=== PATIENT | female | born 1970 | race Caucasian/White ===

== ENCOUNTER → 2019-03-29 | Outpatient (CLI) | payer BC ==
--- NOTE | 2019-03-29 13:16 | RAD ---
CT CHEST WO CONTRAST Indication: Pulmonary nodule Technique: Noncontrast CT imaging was performed of the chest, multiplanar reconstruction images submitted. One or more of the following individualized dose reduction techniques were utilized for this examination: 1. Automated exposure control 2. Adjustment of the mA and/or kV according to patient size 3. Use of iterative reconstruction technique. Comparison: February 07, 2017 Findings: Small noncalcified superior right lower lobe pulmonary nodule image 37 series 2 about 0.3 cm is unchanged. No new pulmonary nodularity is identified. There is unchanged tiny 0.1 to 0.2 cm subpleural right upper lobe nodule image 23 series 2. There is no new infiltrate, pleural or pericardial effusion, pneumothorax, significant chest lymphadenopathy. There is some coronary calcification now apparent. Thoracic aortic caliber is within normal limits. There has been cholecystectomy. Mild fullness of the left adrenal gland is stable. As best seen image 32 series 2, there is a somewhat irregular noncalcified 1.4 cm nodule of the more medial right breast superior to the nipple, not seen on previous exam. There is also somewhat nodular density posterior to the left nipple about 1.6 cm in the approximate 1:00 region, this area not included on previous exam. IMPRESSION: 1. There is a nodule of the medial right breast above the level of nipple not seen previously for which mammography and ultrasound recommended. There is also nodule of the left breast, this area not included previously also which evaluation on mammography and ultrasound recommended. Findings were discussed with nurse Berry in the office of the Ariel Arguello 1:11 PM on 03/29/2019 2. There is stable small superior right lower lobe pulmonary nodule, also stable tiny state subpleural right upper lobe nodule. No new pulmonary nodularity is identified. 3. There is some coronary calcification. Electronically signed by: Bethel Sexton MD (03/29/2019 1:13 PM) [id number]
== END | disposition home or self-care (01) ==
LOC: CT 09:13
PROVIDERS: ATTEND Physician Assistant
DX: R91.1 Solitary pulmonary nodule (principal); I25.10 Atherosclerotic heart disease of native coronary artery without angina pectoris; N63.20 Unspecified lump in the left breast, unspecified quadrant; N63.10 Unspecified lump in the right breast, unspecified quadrant; Z90.49 Acquired absence of other specified parts of digestive tract
CPT/HCPCS: 71250

== ENCOUNTER → 2019-09-30 | Outpatient (CLI) | payer BC ==
[~2019-09-30] MED LIST: IOHEXOL 240 MG/ML 50ML VIAL. ONE
[2019-09-30 09:22] LABS: CREATININE 0.8 mg/dL (0.6-1.0); GFR 75.9; POTASSIUM 3.8 mmol/L (3.5-5.1)
[2019-09-30 09:25] LABS: BASO % 1 % (0-3); EOS # 0.6 x10^3/uL (0.0-0.7); EOS % 25 % (0-3); LYMPH # 0.6 x10^3/uL (1.0-4.8); LYMPH % 24 % (24-48); MEAN CORPUSCULAR HEMOGLOBIN 31 pg (25-35); MEAN CORPUSCULAR HGB CONC 34 g/dL (31-37); MEAN CORPUSCULAR VOLUME 92 fL (79-100); MONO # 0.4 x10^3/uL (0.0-1.1); MONO % 18 % (0-9); NEUT # 0.8 x10^3uL (1.8-7.7); NEUT % 32 % (31-73); PLATELET COUNT 176 x10^3/uL (140-400); RED BLOOD COUNT 4.13 x10^6/uL (3.50-5.40); RED CELL DISTRIBUTION WIDTH 13.1 % (11.5-14.5); WHITE BLOOD COUNT 2.5 x10^3/uL (4.0-11.0)
[2019-09-30 09:28] LABS: ALBUMIN/GLOBULIN RATIO 1.2 (1.0-1.7); TOTAL BILIRUBIN 0.3 mg/dL (0.2-1.0); TOTAL PROTEIN 7.4 g/dL (6.4-8.2)
[2019-09-30] MEDS: IOHEXOL 300 MG/ML 75 ML VIAL. IV ONE (09:56)
--- NOTE | 2019-09-30 10:22 | RAD ---
Examination: CT ABD PELV W/ORAL IV CONTRAST History: Epigastric pain. Low-grade fever. Comparison/Correlation: 01/24/2015 CT abdomen and pelvis with oral contrast Findings: Axial images of the abdomen and pelvis were obtained following IV and oral contrast. Visualized lung bases are unremarkable and minimal linear scarring or atelectasis involving the lingula. Small hiatal hernia is present. Liver, spleen, pancreas, and right adrenal gland are normal. Left adrenal gland nodule probably representing a benign adenoma is stable. Cholecystectomy noted. Kidneys are unremarkable. Circumferential wall thickening the distal duodenum and contiguous. The proximal jejunum is evident. This probably represents contractures present. No surrounding stranding, fluid collection, or extraluminal gas. Appendix is normal. Diverticulosis of the colon is present. Uterus is unremarkable. No ascites or focal fluid. Transitional L5 vertebra is present. Left L4 pars interarticularis fracture. No malalignment. Impression: Hiatal hernia. Circumferential wall thickening of the junction of the distal duodenum and proximal jejunum. This probably represents contraction or spasm. No surrounding inflammatory findings. Left L4 pars interarticularis fracture is again seen. PQRS Compliance Statement: One or more of the following individualized dose reduction techniques were utilized for this examination: 1. Automated exposure control 2. Adjustment of the mA and/or kV according to patient size 3. Use of iterative reconstruction technique Electronically signed by: Kobi Kuhn MD (09/30/2019 10:19 AM) [id number]
[2019-09-30 10:35] LABS: SEDIMENTATION RATE 34 (0-25)
[2019-09-30 11:32] LABS: % ATYL 5 % (0-0); % BANDS 4 % (0-9); % BASOS 1 % (0-3); % EOS 27 % (0-5); % LYMPHS 27 % (24-48); % MONOS 12 % (0-10); % SEGS 24 % (35-66); PLT ESTIMATE ADEQUATE (ADEQUATE)
== END ==
LOC: CT 08:50
PROVIDERS: ATTEND Physician Assistant
DX: K44.9 Diaphragmatic hernia without obstruction or gangrene (principal); R50.9 Fever, unspecified; R11.0 Nausea; R51 Headache; L50.9 Urticaria, unspecified; K57.30 Diverticulosis of large intestine without perforation or abscess without bleeding; Z90.49 Acquired absence of other specified parts of digestive tract
CPT/HCPCS: 36415; 74177; 80053; 82150; 83690; 85007; 85025; 85651; Q9967

== ENCOUNTER → 2020-08-29 | Outpatient (CLI) | payer BC ==
--- NOTE | 2020-08-29 13:23 | RAD ---
XR KNEE_RT 1-2 VIEWS DATE: 08/29/2020 9:20 AM INDICATION: RIGHT KNEE PAIN / Spl. Instructions: / History: COMPARISON: None. FINDINGS: Bones: There is no evidence of acute fracture or dislocation. Joints: Mild medial compartment joint space narrowing. There is no joint effusion. Miscellaneous: None. IMPRESSION: No acute osseous abnormality. Mild medial compartment degenerative joint space narrowing. Electronically signed by: Bethel Reddy MD (08/29/2020 1:20 PM) [id number]
== END ==
LOC: PMG 09:08
PROVIDERS: ATTEND Physician Assistant
DX: M23.8X1 Other internal derangements of right knee (principal)
CPT/HCPCS: 73560

== ENCOUNTER → 2021-04-18 | Outpatient (CLI) | payer BC ==
--- NOTE | 2021-04-19 04:51 | RAD ---
Abdominal radiograph 04/18/2021 4:36 PM Indication: Left upper quadrant abdominal pain and bloating Comparison: None. Technique: Frontal supine radiographs of the abdomen were obtained. Findings: There is no free intraperitoneal air. There is no portal venous gas. No pneumatosis coli. Cholecystec maria [place] rosario changes in the right upper quadrant. There are no dilated loops of small or large bowel. There are no differential air-fluid levels. There is no organomegaly. No suspicious calcifications are identified along the expected course of the genitourinary tract. No suspicious osseous abnormality is identified. IMPRESSION Nonobstructed bowel gas pattern. Electronically signed by: Deepa Persaud MD (04/19/2021 4:49 AM) [facility]
== END ==
LOC: DXRAD 16:32
PROVIDERS: ATTEND Physician Assistant
DX: R14.0 Abdominal distension (gaseous) (principal); R10.12 Left upper quadrant pain
CPT/HCPCS: 74019

== ENCOUNTER → 2021-05-02 | Outpatient (CLI) | payer BC ==
--- NOTE | 2021-05-02 10:06 | RAD ---
EXAM: Right tibia and fibula, 2 views; right ankle, 3 views. HISTORY: Gloria pain. COMPARISON: None. FINDINGS: 2 views of the tibia and fibula and 3 views of the ankle are obtained. There is no fracture , dislocation or subluxation. There is no lytic or sclerotic osseous lesion. There is no periosteal r eaction. The ankle mortise is intact. There is no osteochondral lesion. There is a small corticated o ssicle inferior to the medial malleolus, likely due to chronic nonunited fracture fragment. IMPRESSION: No acute osseous finding. Electronically signed by: Kylie Hazel MD (05/02/2021 10:03 AM) [id number]
== END ==
LOC: RAD 09:40
PROVIDERS: ATTEND Nurse Practitioner Family
DX: M25.571 Pain in right ankle and joints of right foot (principal); M79.604 Pain in right leg
CPT/HCPCS: 73590; 73610

== ENCOUNTER 2021-11-11 16:57 | Emergency (ER) | payer BC ==
[~2021-11-11] VITALS: Ht 160 cm; Wt 111.3 kg
[2021-11-11] MEDS ORDERED: IV NORMAL SALINE 1,000ML 1,000 ML IV ONE (19:15)
[2021-11-11] MEDS ORDERED: ONDANSETRON PF 4 MG/2 ML VIAL. IVP ONE (19:15)
--- NOTE | 2021-11-11 19:16 | PHYS DOC ---
General Adult EDM: Chief Complaint: NAUSEA/VOMITING/DIARRHEA HPI: HPI: Patient is a 51-year-old female who presents to the emergency department for nausea, vomiting, diarrhea, fevers, bloating, shortness of breath and umbilical abdominal cramping that started on . She reports a temperature at home of 102. She reports a positive sick exposure as her 9-year-old grandson had similar symptoms. She denies any dysuria, blood in her stools or vomit, cough. Review of Systems: Review of Systems: Constitutional: See HPI Respiratory: See HPI GI: See HPI : See HPI Musculoskeletal: Denies flank pain Allergies: Allergies: Allergies Coded Allergies Type Severity Reaction Last Updated Verified No Known Drug Allergies 01/24/15 No Physical Exam: PE: Constitutional: Well developed, well nourished, no acute distress, non-toxic appearance. [] HENT: Normocephalic, atraumatic, bilateral external ears normal, oropharynx moist, no oral exudates, nose normal. [] Eyes: PERRL, EOMI, conjunctiva normal, no discharge. [] Neck: Normal range of motion, no tenderness, supple, no stridor. [] Cardiovascular:Heart rate regular rhythm, no murmur [] Lungs & Thorax: Bilateral breath sounds clear to auscultation [] Abdomen: Bowel sounds normal, soft, epigastric, periumbilical, left upper quadrant and bilateral lower abdominal tenderness with palpation, no abdominal guarding or rigidity, no rebound tenderness, no masses, no pulsatile masses. [] Skin: Warm, dry, no erythema, no rash. [] Back: No tenderness, no CVA tenderness. [] Extremities: No tenderness, no cyanosis, no clubbing, ROM intact, no edema. [] Neurologic: Alert and oriented X 3, normal motor function, normal sensory function, no focal deficits noted. [] Psychologic: Affect normal, judgement normal, mood normal. [] Current Patient Data: Labs: Laboratory Tests Test 11/11/21 19:00 11/11/21 19:40 11/11/21 20:30 Urine Collection Type Clean catch Urine Color Yellow Urine Clarity Hazy Urine pH 6.5 Urine Specific [place] >=1.030 Urine Protein 100 mg/dl Urine Glucose (UA) Neg mg/dL Urine Ketones (Stick) Trace mg/dL Urine Blood Trace Urine Nitrite Neg Urine Bilirubin Small Urine Urobilinogen Dipstick 0.2 mg/dL Urine Leukocyte Esterase Neg Urine RBC 3-5 /HPF Urine WBC 1-4 /HPF Urine Squamous Epithelial Cells Many /LPF Urine Bacteria Mod /HPF White Blood Count 4.7 x10^3/uL Red Blood Count 4.87 x10^6/uL Hemoglobin 15.5 g/dL Hematocrit 44.1 % Mean Corpuscular Volume 91 fL Mean Corpuscular Hemoglobin 32 pg Mean Corpuscular Hemoglobin Concent 35 g/dL Red Cell Distribution Width 13.1 % Platelet Count 266 x10^3/uL Neutrophils (%) (Auto) 55 % Lymphocytes (%) (Auto) 24 % Monocytes (%) (Auto) 20 % Eosinophils (%) (Auto) 0 % Basophils (%) (Auto) 1 % Neutrophils # (Auto) 2.6 x10^3uL Lymphocytes # (Auto) 1.1 x10^3/uL Monocytes # (Auto) 0.9 x10^3/uL Eosinophils # (Auto) 0.0 x10^3/uL Basophils # (Auto) 0.0 x10^3/uL Sodium Level 134 mmol/L Potassium Level 2.9 mmol/L Chloride Level 97 mmol/L Carbon Dioxide Level 22 mmol/L Anion Gap 15 Blood Urea Nitrogen 30 mg/dL Creatinine 1.3 mg/dL Estimated GFR (Cockcroft-Gault) 43.0 BUN/Creatinine Ratio 23 Glucose Level 102 mg/dL Calcium Level 9.7 mg/dL Total Bilirubin 0.5 mg/dL Aspartate Amino Transf (AST/SGOT) 56 U/L Alanine Aminotransferase (ALT/SGPT) 131 U/L Alkaline Phosphatase 82 U/L Total Protein 8.6 g/dL Albumin 4.4 g/dL Albumin/Globulin Ratio 1.0 Lipase 93 U/L Influenza Type A (Rapid) Negative Influenza Type B (Rapid) Negative SARS-CoV-2 Antigen (Rapid) Negative Current Medications Medications (Trade) Dose Ordered Sig/Alice Route PRN Reason Start Time Stop Time Status Last Admin Dose Admin Sodium Chloride 1,000 ml @ 1,000 mls/hr 1X ONCE IV 11/11/21 19:15 11/11/21 20:14 DC 11/11/21 20:01 Ondansetron HCl (Zofran) 4 mg 1X ONCE IVP 11/11/21 19:15 5/29/22 19:20 DC 11/11/21 20:01 Fentanyl Citrate (Fentanyl 2ml Vial) 50 mcg 1X ONCE IVP 11/11/21 19:15 11/11/21 19:20 DC 11/11/21 20:02 Potassium Chloride (Klor-Con) 60 meq 1X ONCE PO 11/11/21 20:45 11/11/21 20:48 DC EKG: EKG: EKG performed by ER staff at 2109 shows sinus rhythm some T wave inversions in V2, no STEMI read by Dr. Zapata at 2116 [] Radiology/Procedures: Radiology/Procedures: []PROCEDURE: PORTABLE CHEST 1V XR CHEST 1V History: Reason: soa, fever / Spl. Instructions: / History: Comparison: None. Findings: No consolidation or pleural effusion. Normal heart size. No pneumothorax. Impression: 1. No acute cardiopulmonary process. Electronically signed by: Edison Enriquez DO (11/11/2021 8:12 PM) [facility] DICTATED AND SIGNED BY: EDISON ENRIQUEZ DO DATE: 11/11/212011 CC: EMERGENCY,DEPARTMENT; RHEA LARA; ABEL SEWELL SEWER DIGGER ~ PROCEDURE: CT ABDOMEN PELVIS WO CONTRAST PQRS Compliance Statement: One or more of the following individualized dose reduction techniques were utilized for this examination: 1. Automated exposure control 2. Adjustment of the mA and/or kV according to patient size 3. Use of iterative reconstruction technique CT ABDOMEN+PELVIS WO Clinical Indication: Reason: abdominal pain with n/v/d / Spl. Instructions: / History: Comparison: CT abdomen and pelvis of contrast September 30, 2019. Technique: Helical CT imaging of the abdomen and pelvis is performed without IV or oral contrast. Findings: Evaluation of solid organs and bowel is limited without oral and IV contrast, decreasing sensitivity for detection of abnormal findings. Lung bases are clear. Cardiac size is normal. Cholecystectomy. There is mild fatty infiltration of the liver. The spleen, pancreas, and right adrenal gland are normal. 1.2 cm left adrenal adenoma. The abdominal aorta is normal caliber. There is no perinephric stranding or hydronephrosis. The stomach is unremarkable. There are several subcentimeter mesenteric lymph nodes. There is no adenopathy. Tiny fat-containing umbilical hernia. There is no dilated small bowel. The appendix is normal. No colon wall thickening is seen. There is a diverticulum of the descending colon. Urinary bladder is decompressed limiting evaluation. There is an ovaries are unremarkable. There is no pelvic free fluid. There is left L5 spondylolysis. No acute bone abnormality. IMPRESSION: 1. No acute abdominal or pelvic abnormality. 2. Mild fatty infiltration of the liver. 3. Small left adrenal adenoma. Electronically signed by: Kendall Mchugh MD (11/11/2021 8:07 PM) [facility] DICTATED AND SIGNED BY: KENDALL MCHUGH MD DATE: 11/11/212000 CC: EMERGENCY,DEPARTMENT; RHEA LARA; ABEL SEWELL SEWER DIGGER ~ Heart Score: C/O Chest Pain: N/A Risk Factors: Risk Factors: DM, Current or recent (<one month) smoker, HTN, HLP, family history of CAD, obesity. Risk Scores: Score 0 - 3: 2.5% MACE over next 6 weeks - Discharge Home Score 4 - 6: 20.3% MACE over next 6 weeks - Admit for Clinical Observation Score 7 - 10: 72.7% MACE over next 6 weeks - Early Invasive Strategies Course & Med Decision Making: Course & Med Decision Making Pertinent Labs and Imaging studies reviewed. (See chart for details) [] Patient resents to the emergency department for nausea, vomiting, diarrhea, umbilical abdominal cramping, fevers and shortness of breath that started on . Work-up in the ER consisted of blood work including lipase, urinalysis, COVID and flu testing and CT imaging of abdomen and pelvis without IV contrast due to national shortage. Patient treated with IV fluids, Zofran and pain medication. CBC is unremarkable, patient's CMP showed a gap of 15, sodium 134, creatinine of 1.3, potassium 2.9 likely due to dehydration. Her potassium was replaced in the emergency department and patient is able to tolerate oral intake. AST was 56, ALT is 131 consistent with fatty liver as seen on patient's CT scan. Urinalysis shows moderate bacteria with white blood cells, patient be treated for UTI with antibiotic. She has not had any active vomiting while in the emergency department. Patient will be discharged home with nausea medication, she is advised to take Imodium [id number] for diarrhea. Patient likely has a viral illness. I discussed with patient all findings and diagnostic testing as well as the need to follow-up with PCP for further evaluation and treatment or return to the ER if any new or worsening symptoms. Strict return precautions were also discussed at length. Patient voiced understanding and agreement with the plan. Patient is hemodynamically stable at the time of disposition. Jesuson Disclaimer: Clarence Disclaimer: This electronic medical record was generated, in whole or in part, using a voice recognition dictation system. Departure Departure: Impression: Primary Impression: Viral syndrome Additional Impression: Urinary tract infection Qualified Codes: N30.01 - Acute cystitis with hematuria Disposition: HOME / SELF CARE / HOMELESS Condition: GOOD Referrals: RHEA LARA (PCP) Patient Instructions: Nausea and Vomiting, Urinary Tract Infection Additional Instructions: You are seen in the emergency department today for nausea, vomiting, diarrhea, fevers and abdominal pain. Please see attached CT imaging results to follow-up with your primary care provider regarding this. As we discussed, your blood work did show signs of dehydration. Make sure that you are increasing your fluid intake at home. You were noted to have low potassium which was replaced in the emergency department. Please make sure that you are eating potassium rich foods like bananas and green leafy vegetables. Your urinalysis did show a urinary tract infection which will be treated with an antibiotic. Please start and finish the antibiotic completely. Avoid bladder irritants like caffeine, sugary beverages and alcohol. Take Tylenol and ibuprofen at home for your pain or fevers. You are being discharged home with nausea medication that you can take as needed. You should take Imodium [id number] for diarrhea. Please follow-up with your primary care provider on Friday. Return to the emergency department if you develop worsening of your abdominal pain, intractable nausea or vomiting, high fevers refractory to treatment, blood in your stools or vomit. Scripts Cephalexin (KEFLEX) 500 Mg Capsule 1 CAP PO BID for UTI for 7 Days, #14 CAP 0 Refills Prov: ABEL SEWELL APRN 11/11/21 Ondansetron (ONDANSETRON ODT) 4 Mg Tab.rapdis 1 TAB PO PRN Q6-8HRS for NAUSEA for 7 Days, #28 TAB 0 Refills Prov: ABEL SEWELL APRN 11/11/21 ABEL SEWELL APRN November 11, 2021 19:16
[2021-11-11 19:58] LABS: BASO % 1 % (0-3); EOS % 0 % (0-3); HEMATOCRIT 44.1 % (36.0-47.0); HEMOGLOBIN 15.5 g/dL (12.0-15.5); LYMPH # 1.1 x10^3/uL (1.0-4.8); LYMPH % 24 % (24-48); MEAN CORPUSCULAR HEMOGLOBIN 32 pg (25-35); MEAN CORPUSCULAR HGB CONC 35 g/dL (31-37); MEAN CORPUSCULAR VOLUME 91 fL (79-100); MONO # 0.9 x10^3/uL (0.0-1.1); MONO % 20 % (0-9); NEUT # 2.6 x10^3uL (1.8-7.7); NEUT % 55 % (31-73); PLATELET COUNT 266 x10^3/uL (140-400); RED BLOOD COUNT 4.87 x10^6/uL (3.50-5.40); RED CELL DISTRIBUTION WIDTH 13.1 % (11.5-14.5); WHITE BLOOD COUNT 4.7 x10^3/uL (4.0-11.0)
[2021-11-11 20:09] LABS: BACTERIA,URINE MOD /HPF (0-FEW); CLARITY,URINE HAZY; COLOR,URINE YELLOW; GLUCOSE,URINE NEG (NEG); NITRITE,URINE NEG (NEG); SQUAMOUS EPITHELIAL CELL,UR MANY /LPF; UROBILINOGEN,URINE 0.2 mg/dL (0.2 mg/dL)
--- NOTE | 2021-11-11 20:09 | RAD ---
PQRS Compliance Statement: One or more of the following individualized dose reduction techniques were utilized for this examinat ion: 1. Automated exposure control 2. Adjustment of the mA and/or kV according to patient size 3. Use of iterative reconstruction technique CT ABDOMEN+PELVIS WO Clinical Indication: Reason: abdominal pain with n/v/d / Spl. Instructions: / History: Comparison: CT abdomen and pelvis of contrast September 30, 2019. Technique: Helical CT imaging of the abdomen and pelvis is performed without IV or oral contrast. Findings: Evaluation of solid organs and bowel is limited without oral and IV contrast, decreasing sensitivity for detection of abnormal findings. Lung bases are clear. Cardiac size is normal. Cholecystectomy. There is mild fatty infiltration of the liver. The spleen, pancreas, and right adren al gland are normal. 1.2 cm left adrenal adenoma. The abdominal aorta is normal caliber. There is no perinephric stranding or hydronephrosis. The stomach is unremarkable. There are several subcentimeter mesenteric lymph nodes. There is no kacie opathy. Tiny fat-containing umbilical hernia. There is no dilated small bowel. The appendix is normal . No colon wall thickening is seen. There is a diverticulum of the descending colon. Urinary bladder is decompressed limiting evaluation. There is an ovaries are unremarkable. There is n o pelvic free fluid. There is left L5 spondylolysis. No acute bone abnormality. IMPRESSION: 1. No acute abdominal or pelvic abnormality. 2. Mild fatty infiltration of the liver. 3. Small left adrenal adenoma. Electronically signed by: Kendall Mchugh MD (11/11/2021 8:07 PM) [facility]
[2021-11-11 20:13] LABS: ALBUMIN 4.4 g/dL (3.4-5.0); CALCIUM 9.7 mg/dL (8.5-10.1); CREATININE 1.3 mg/dL (0.6-1.0); TOTAL BILIRUBIN 0.5 mg/dL (0.2-1.0); TOTAL PROTEIN 8.6 g/dL (6.4-8.2)
--- NOTE | 2021-11-11 20:14 | RAD ---
XR CHEST 1V History: Reason: soa, fever / Spl. Instructions: / History: Comparison: None. Findings: No consolidation or pleural effusion. Normal heart size. No pneumothorax. Impression: 1. No acute cardiopulmonary process. Electronically signed by: Edison Ivory DO (11/11/2021 8:12 PM) [facility]
[2021-11-11 20:19] LABS: POTASSIUM 2.9 mmol/L (3.5-5.1)
[2021-11-11] MEDS ORDERED: POTASSIUM CHLORIDE 20 MEQ TABLET.ER. PO ONE (20:45)
[2021-11-11 21:12] LABS: INFLUENZA A PATIENT NEGATIVE (NEGATIVE); INFLUENZA B PATIENT NEGATIVE (NEGATIVE)
[2021-11-11] MEDS ORDERED: ONDA4TAB12 PO (21:29)
[2021-11-11] MEDS ORDERED: CEPH500C PO (21:29)
[2021-11-11] MEDS ORDERED: ONDANSETRON ODT 4 MG TAB.RAPDIS PO ONE (21:30)
[2021-11-11] MEDS ORDERED: LOPERAMIDE 2 MG CAPSULE PO ONE (21:30)
[2021-11-11 21:57] VITALS: BP 119/83
== END 2021-11-11 21:55 | disposition home or self-care (01) ==
LOC: ER 16:57
DX: N30.01 Acute cystitis with hematuria (principal); B34.9 Viral infection, unspecified; Z20.822 Contact with and (suspected) exposure to COVID-19
CPT/HCPCS: 36415; 71045; 74176; 80053; 81001; 83690; 85025; 87077; 87086; 87186; 87428; 93005; 96361; 96374; 96375; 99285; J2405; J3010; J7030; Q0162